=== PATIENT | female | born 1960 | race African-American/Black ===

== ENCOUNTER 2025-08-03 12:59 | Outpatient (REF) | payer MEDICARE, SELFPAY ==
--- NOTE | 2025-08-03 | EMG_ITS ---
Chief complaint:?R20.0 Anesthesia of skin Reason for referral: Burning and pain in hands Referred by:?Alpesh Rollins Procedure done: Bilateral hand numbness NCS/EMG Bilateral median and ulnar motor studies were performed. Bilateral median and ulnar mixed sensory studies, median and ulnar ortho sensory studies, and radial sensory studies were performed. EMG needle examination was performed. Findings: Bilateral median motor distal latencies were moderately prolonged. Left median mixed sensory study did not reveal any response. Right median mixed sensory distal latencies was prolonged with significantly slow conduction velocity. Left ulnar motor amplitudes were mildly diminished with mild slowing of conduction velocity. Impression: 1. 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 Moderate left ulnar neuropathy not of entrapment type Codin [id number] 2 extremities MTDD
--- OUTSIDE RECORDS SUMMARY | 2025-08-03 15:54 | XMS_ITS | Clinical Summary ---
Author Organization [address] [place] [address] Address [address] [place] [address] Phone Care Team Providers Care Financial Institution Treasurer Name Role Phone Madonna Stevens MD Primary Care Provider [phone] Allergies Active Allergy Reactions Criticality Noted Date Comments Apple 12/25/2020 Other 11/09/2015 Seasonal Allergies Runny nose , watery eye's Sneezing [place] (Prunus Persica) 05/07/2021 Nenana 12/25/2020 Nenana Pulp Nutritional Supplement-Fiber 025 Throat closes Medications acetaminophen (TYLENOL) 325 mg tablet Take 3 Tablets by mouth 3 times daily. Active albuterol HFA (PROAIR HFA ; PROVENTIL HFA ; VENTOLIN HFA) 90 mcg/actuation inhaler INHALE 2 PUFFS INTO THE LUNGS BY MOUTH EVERY 4 HOURS NEEDED FOR COUGH OR WHEEZING Active aspirin (ASPIR-81 ORAL) Take 81 mg by mouth daily. Active blood-glucose meter,continuous (Dexcom G7 Mixing Plant Operator) misc 1 Device by Does not apply route See Admin Instructions. Use daily with dexcom g 7 sensors Active blood-glucose sensor (DEXCOM G7 SENSOR MISC) 1 Device by Does not apply route See Admin Instructions. Change sensor every 10 days Active medical supply, miscellaneous (MISCELLANEOUS MEDICAL SUPPLY MISC) Inhale into the lungs. [employer]-pressur e 4-12 Active pen needle, diabetic (BD Ultra-Fine Short Pen Needle) 31 gauge x 5/16 needle USE TO INJECT FOUR TIMES DAILY 023 Active insulin syringe-needle U-100 0.5 mL 29 gauge x 1/2 syringe Use daily to inject Lantus insulin. 022 Active ipratropium-albu teroL (DUONEB) 0.5-2.5 mg/3 mL nebulizer solution USE 3 ML VIA NEBULIZER FOUR TIMES DAILY NEEDED FOR WHEEZING 024 Active fluticasone-umec lidinium-vilante rol (Trelegy Ellipta) 200-62.5-25 mcg inhaler INHALE 1 PUFF INTO THE LUNGS DAILY 60 each 11 Active simvastatin (ZOCOR) 20 mg tablet Take 1 tablet (20 mg total) by mouth at bedtime. at bedtime. 90 tablet 3 025 Active gabapentin (NEURONTIN) 300 mg capsule TAKE 1 CAPSULE BY MOUTH THREE TIMES DAILY 270 capsule 1 Active sacubitriL-valsa rtan (Entresto) 49-51 mg per tablet TAKE 1 TABLET BY MOUTH EVERY 12 HOURS 60 tablet 5 025 Active furosemide (LASIX) 40 mg tablet TAKE 1 TABLET BY MOUTH TWICE DAILY 200 tablet 2 025 Active Oxygen Therapy, Adult Inhale. Active insulin glargine (Lantus Solostar U-100 Insulin) 100 unit/mL (3 mL) injection pen INJECT 30 UNITS SUBCUTANEOUS AT BEDTIME 45 mL Active insulin lispro (HumaLOG KwikPen Insulin) 100 unit/mL injection pen INJECT 3-16UNITS PER SLIDING SCALE TID: 100-150=2U,150- 200=4U,201-250= 6U,251-300=8U,3 01-350=10U,351- 400=12U 15 mL 025 Active FeroSuL 325 mg (65 mg iron) tablet TAKE 1 TABLET BY MOUTH EVERY DAY 90 tablet 1 025 Active blood sugar diagnostic (Conduit LabsTouch Verio test strips) test strip CHECK BLOOD SUGAR 3 TIMES DAILY 300 strip 1 025 Active lancets (Conduit LabsTouch Delica Plus Lancet) 30 gauge USE TO TEST 3 TIMES DAILY 300 each 025 Active carvediloL (COREG) 12.5 mg tablet TAKE 1 TABLET(12.5 MG) BY MOUTH TWICE DAILY 180 tablet Active allopurinoL (ZYLOPRIM) 100 mg tablet TAKE 1/2 TABLET BY MOUTH DAILY 45 tablet Active hydrALAZINE (APRESOLINE) 10 mg tablet TAKE 1 TABLET(10 MG) BY MOUTH TWICE DAILY 180 tablet Active pantoprazole (PROTONIX) 40 mg EC tablet Take 1 tablet (40 mg total) by mouth 1 (one) time each day. Do not crush, chew, or split. 90 tablet 1 Active apixaban (Eliquis) 5 mg tablet Take 1 tablet (5 mg total) by mouth 2 (two) times a day. 180 tablet Active tirzepatide (Mounjaro) 5 mg/0.5 mL injectionIndicat ions:Type 2 diabetes mellitus with cataract (CMS/HCC V24, CMS/HCC V28) ADMINISTER 5 MG UNDER THE SKIN EVERY 7 DAYS 2 mL 11 Active allopurinoL (ZYLOPRIM) 100 mg tablet TAKE 1/2 TABLET BY MOUTH DAILY 45 tablet 1 025 2024 Discontinued apixaban (Eliquis) 5 mg tablet TAKE 1 TABLET BY MOUTH TWICE DAILY 180 tablet 1 025 2024 Discontinued(R eorder) pantoprazole (PROTONIX) 40 mg EC tablet TAKE 1 TABLET BY MOUTH DAILY 90 tablet 025 2024 Discontinued(R eorder) hydrALAZINE (APRESOLINE) 10 mg tablet Take 1 tablet (10 mg total) by mouth 2 (two) times a day. 180 tablet 025 2024 Discontinued Mounjaro 5 mg/0.5 mL injectionIndicat ions:Type 2 diabetes mellitus with cataract (CMS/HCC V24, CMS/HCC V28) ADMINISTER 5 MG UNDER THE SKIN EVERY 7 DAYS 2 mL 025 2024 Discontinued colchicine (COLCRYS) 0.6 mg tablet Take 1 tablet (0.6 mg total) by mouth 2 (two) times a day if needed for muscle/joint pain for up to 5 days. 10 tablet 025 2024 predniSONE (DELTASONE) 20 mg tablet Take 3 tablets (60 mg total) by mouth 1 (one) time each day for 5 days. 15 each 025 2024 Active Problems Problem Noted Date Diagnosed Date Atrial tachycardia [place] [place] 09/11/2023 Acute on chronic systolic he art failure ([facility] [place], [facility] V28) 09/10/2023 COPD with emphysema ([facility] [place], [facility]) 1 11/11/2022 Moderate persistent asthma without complication 02/05/2023 HFrEF (heart failure with re duced ejection fraction) ([facility] [place], [facility] V[facility]) 05/07/2021 Stress 01/25/2020 Hyperlipidemia 09/06/2019 Overview (08/02/2024): Last Assessment & Plan: Continue statin. Last lipid panel 05/17 total cholesterol 186, HDL 48, LDL 65. Triglycerides at this time was 365. Next time she has fasting labs would like this updated. Overlap syndrome ([facility] V24) 12/28/2018 Cataract 01/30/2017 Overview (08/02/2024): Bilateral Obstructive sleep apnea 10/07/2016 Overview (08/02/2024): mild overall with hypopneas DM (diabetes mellitus), type 2 with renal complications ([facility] [place], [facility] V28) 03/11/2016 Overview (08/02/2024): DM type 2, uncontrolled, with renal complications Normocytic anemia 12/27/2015 CKD (chronic kidney disease) stage 3, GFR 30-59 ml/min ([facility] [place], [facility] V28) 11/09/2015 Diabetic neuropathy ([facility] [place], [facility] V28) 0 11/09/2015 Cardiomyopathy ([facility] [place] V28) 2014 Overview (08/02/2024): 5/18/15 cardiac cath normal coronaries LVG 30% Last Assessment & Plan: Heart rate is elevated today around 120. Tachycardia is not new for her however this is slightly higher than her normal. We will increase her metoprolol to 200 mg twice daily. She will obtain blood work within the next 1 to 2 days and plan to reinitiate Entresto. Aldactone has also been on hold but we will reinitiate these medications slowly with a close eye on her kidney function and potassium level. She tells me prior to the hospital her legs were pretty swollen and today they look close to her baseline. She has no heart failure symptoms. She does have baseline dyspnea on exertion but does not believe this is worsened. Reviewed signs and symptoms of heart failure and educated regarding monitoring weight, diet, and fluid intake. If there is a weight gain of 3 pounds in one day or 5 pounds in a week please call our office or seek medical attention if necessary. Asthma 12/12/2014 Morbid obesity with BMI of 5 0.0-59.9, adult ([facility] V24, [facility] V28) 01/03/2014 Hypoventilation associated w ith obesity ([facility] V24, [facility] V28) 08/08/2013 CVA (cerebral vascular accident) ([facility], [facility] V[facility]) 11/21/2011 Overview (08/02/2024): Mri 11/0960-guvaudgd-fyr in cerebellum adn left vertebral artery occulusion.neuro and neurosurg were consulted. Head and neck cta-vertebral artery occulusion which was reveiwed [place] neurosug Who reported no intervention. 11/09-carotid artery looked onk on cta Echo ef 45-50% IMO update Systolic congestive heart fa ilure ([facility] V24, [facility] V28) 11/21/2011 Overview (08/02/2024): 08/11- inf basal reduced wall motion.ef 45%.diastolic dysfunction seen by dr sherman technically significantly limited M-mode, 2D and color flow Doppler echocardiogram reveals grossly low normal LVEF. Precise LVEF and wall motion abnormalities cannot be evaluated due to poor image quality. Subtle valvular abnormalities cannot be excluded either. 2/12-echo ef 45-50% Preglaucoma 03/02/2010 Overview (08/02/2024): Per Dr. Farnsworth 07/25/2008 Type 2 diabetes mellitus wit h cataract ([facility] V24, [facility] V28) 07/21/2008 Eczema 06/21/2008 Overview (08/02/2024): Seen by mack.also has tenia versicolor,lichen planus 03/01/10 - cpx Saw Dr. Bush For tinea ; Cream for eczema from here HTN (hypertension), benign 06/08/2008 Overview (08/02/2024): Last Assessment & Plan: Controlled mostly, is off Entresto and Aldactone plan to reinitiate these slowly which will help her BP also Osteoarthritis 06/08/2008 Overview (08/02/2024): 08/07- TKR rt-dr riojas 03/08- left tkr Porfirio-Dr canchola rheum.has also been seeing [place] [facility].has to get knee replacements Was on oxycodone and tramadol 08/31 xray knees- sevre osteoarthritic changes withing porfirio knees cpx 03/01/10 - scheduled for knee replacement 2009 Type II diabetes mellitus wi th neurological manifestations ([facility] V24, [facility] V28) 06/08/2008 Overview (08/02/2024): 10/10-4 metformin a day even xr giving loose stools Dr Tang previous pcp.was discharged due to noncompliance as per pt Hx of numbness and tingling in feet Has seen endocrine for hirsuitism Encounters Date Type Department Care Team Description 07/26/2025 3:03 PM EDT - 07/26/2025 3:54 PM EDT Emergency [facility] Emergency [address] [place] [address] Bogdan Maldonado MD Left arm pain (Primary Dx); Lead-induced acute gout of left hand, initial encounter Discharge Disposition: Home or Self Care 07/26/2025 Telephone Adult Medicine [address] [phone] Madonna Stevens MD 07/21/2025 Telephone Adult Medicine [address] [phone] Madonna Stevens MD 07/21/2025 Telephone Adult Medicine [address] [phone] Madonna Stevens MD 07/14/2025 Telephone Adult Medicine [address] [phone] Madonna Stevens MD 07/13/2025 Telephone Adult Medicine [address] [phone] [place] 07/13/2025 Telephone Adult Medicine [address] [phone] [place] 06/30/2025 Telephone Adult Medicine [address] [phone] Madonna Stevens MD 06/27/2025 Telephone Adult Medicine [address] [phone] Madonna Stevens MD 06/26/2025 Telephone Pulmonology [facility] [address] [phone] Suzy Cummings [place] 06/26/2025 Telephone Pulmonology [facility] 299 [facility] [address] [place] [phone] Trinity Sierra [place] 06/20/2025 4:25 PM EDT Office Visit Pulmonology [facility] 175 [facility] [address] [place] [address] Homa Cotto NP Pulmonary emphysema, unspecified emphysema type (CMS/HCC V24, CMS/HCC V28) (Primary Dx); HFrEF (heart failure with reduced ejection fraction) ([facility] V[facility], [facility] V[facility]); Severe asthma without complication, unspecified whether persistent; Lung mass; Obstructive sleep apnea; Class 3 obesity with alveolar hypoventilation, serious comorbidity, and body mass index (BMI) of 50.0 to 59.9 in adult ([facility] V24, [facility]) 06/19/2025 4:08 PM EDT - 06/19/2025 11:59 PM EDT Hospital [facility] CT Scan [address] [place] [id number] Lung mass Discharge Disposition: Home or Self Care 06/16/2025 Telephone Adult Medicine [address] [phone] Brittany Bowling [place] 06/15/2025 Telephone Pulmonology [facility] [address] [phone] Trinity Sierra [place] 06/13/2025 4:30 PM EDT Consult Pulmonology - [place] [address] [phone] Lissette De La Cruz MD Lung mass (Primary Dx) 06/13/2025 Telephone Adult Medicine [address] [phone] Sally Mcclure [place] 06/12/2025 Telephone Adult Medicine [address] [phone] Madonna Stevens MD 06/05/2025 Telephone Adult Medicine [address] [phone] Sally Mcclure [place] 06/01/2025 Telephone Adult Medicine [address] [phone] Madonna Stevens MD 05/31/2025 Telephone Pulmonology [facility] [address] [phone] Trinity Hoffman [place] 05/25/2025 Telephone Adult [address] [phone] Ernesto BazanisFRIDA 05/24/[address] [phone] Madonna Stevens MD 05/23/[address] [phone] Madonna Stevens MD 05/23/[address] [phone] Madonna Stevens MD 05/22/2025 2:00 PM EDT Office Visit [address] [phone] Em Mcrae PA Type 2 diabetes mellitus with cataract ([facility] V24, [facility] V[facility]) (Primary Dx); HTN (hypertension), benign; Morbid obesity with BMI of 50.0-59.9, adult ([facility] V24, [facility] V28); Stage 3b chronic kidney disease ([facility] V24, [facility] V[facility]) 05/11/2025 10:30 AM EDT Office Visit [address] [phone] Madonna Stevens MD Hospital discharge follow-up (Primary Dx); Lung mass; Stage 3b chronic kidney disease (CMS/HCC V24, CMS/HCC V28); Class 3 obesity with alveolar hypoventilation, serious comorbidity, and body mass index (BMI) of 50.0 to 59.9 in adult ([facility] V[facility], [facility] V[facility]); Pulmonary emphysema, unspecified emphysema type ([facility], [facility] V[facility]); Carpal tunnel syndrome of left wrist from Last 3 Months Immunizations Immunization Administration Dates Next Due Influenza Quadravalent, MDCK , 0.5ml, preservative free (Flucelvax) 6mo and older 07/21/2022,06/26/2020 Influenza trivalent, MDCK, 0 .5mL, preservative free (Flucelvax) 6mo and older 11/16/2024 Influenza trivalent, with pr eservative (Fluzone; Afluria) 6mo and older 10/03/2014 Pneumococcal polysaccharide 23 valent (Pneumovax 23) 2yo and older 10/03/2014 Tdap Tetanus diptheria acell ular pertussis (Boostrix; Adacel) 7yo and older 09/12/2009 Surgical History Surgery Date Site/Laterality Comments SECTION PROCEDURE: OR DELIVERY ONLY OTHER SURGICAL HISTORY 09/28/2007 PROCEDURE: OR TOTAL ABDOMINAL HYSTERECT W/WO RMVL TUBE OVARY COLONOSCOPY 07/08/13; [facility] PROCEDURE: HISTORICAL COLONOSCOPY; COMMENT: normal; repeat in ten yrs TOTAL KNEE ARTHROPLASTY PROCEDURE: OR ARTHRP KNE CONDYLE&PLATU MEDIAL&LAT COMPARTMENTS Medical History Medical History Date Comments Type II or unspecified type diabetes mellitus with unspecified complication, not stated as uncontrolled DX:Type II or unspecified ty pe diabetes mellitus with unspecified complication, not stated as uncontrolled; COMMENT: no am read Heart disease, unspecified DX:He art disease, unspecified Unspecified essential hypertension DX:Unspecified essential hypertension Preglaucoma 03/02/2010 DX:Preglaucoma Diabetic neuropathy ([facility] V[facility], [facility]) 11/09/2015 DX:Diabetic neuropathy ([facility]) CKD (chronic kidney disease) stage 3, GFR 30-59 ml/min ([facility] V24, [facility] V[facility]) 11/09/2015 DX:CKD (chronic kidney disea se) stage 3, GFR 30-59 ml/min ([facility]) DM type 2, uncontrolled, wit h renal complications 03/11/2016 DX:DM type 2, uncontrolled, with renal complications Cataract 01/30/2017 DX:Cataract; COM MENT: Bilateral Type 2 diabetes mellitus wit h cataract ([facility] V24, [facility] V[facility]) 07/21/2008 DX:Type 2 diabetes mellitus with cataract ([facility]) Elevated heart rate with ronni vated blood pressure and diagnosis of hypertension DX:Elevated heart rate with elevated blood pressure and diagnosis of hypertension Renal disease DX:Renal disease COPD (chronic obstructive pu lmonary disease) ([facility] V[facility], [facility] V[facility]) DX:COPD (chronic o bstructive pulmonary disease) (HCC) Asthma DX:Asthma Arthritis DX:Arthritis Sleep apnea DX:Sleep apnea Therapeutic drug monitoring DX:T herapeutic drug monitoring Vertebral osteomyelitis, acu te ([facility] V24, [facility] V28) DX:Vertebral osteomyelitis, acute (HCC) Family History Medical History Relation Name Comments Diabetes Brother Hypertension Brother Other: Other Brother dm/ htn Cataracts Father Diabetes Father Hypertension Father Other: Hyperlipidemia Father Other: Other Father dm Prostate cancer Father Cataracts Mother Hypertension Mother Other: Hyperlipidemia Mother Diabetes Sister 1 Breast cancer Neg Hx Relation Name Status Comments Brother Alive 2, Father renal failure Mother ovarain cancer Sister 1 Sister 2 Alive 1,healhy Social History Tobacco Use Types Packs/Day Years Used Date Smoking Tobacco: Never Smokeless Tobacco: Never Tobacco Cessation:Counseling Given: Not Answered Alcohol Use Standard Drinks/Week Comments Not Currently 0 (1 standard drink = 0.6 oz pur e alcohol) Comments No Sex and Gender Information Value Date Recorded Sex Assigned at Female 11/03/2022 5:34 PM EST Legal Sex Female 5:45 PM EST Gender Identity Female 11/03/2022 5:34 PM EST Sexual Orientation Not on file Obstetrics History Last Filed Vital Signs Vital Sign Reading Time Taken Comments Blood Pressure 141/121 07/26/2025 2:49 PM EDT Pulse 88 07/26/2025 2:49 PM EDT Temperature 36.6 C (97.9 F) 06/20/2025 4:22 PM EDT Respiratory Rate 18 07/26/2025 2:49 PM EDT Oxygen Saturation 93% 07/26/2025 2:49 PM EDT Inhaled Oxygen Concentration - - Weight 145 kg (320 lb) 06/13/2025 4:45 PM EDT Height 157.5 cm (5' 2 ) 06/13/2025 4:45 PM EDT Body Mass Index 58.53 06/13/2025 4:45 PM EDT Plan of Treatment Upcoming Encounters Date Type Department Care Team (Late st Contact Info) Description 08/09/2025 3:15 PM EST Ancillary Procedure Pulmonology - [address] [place] [address] 08/15/2025 2:40 PM EST Office Visit [facility] [address] 300 [facility] [address] [place] [phone] Clarisa Martins NP [address] [place] [address] Dr Maldonado [address] [place] [address] 08/21/2025 4:00 PM EST Office Visit Pulmonology - [place] [address] [place] [phone] Homa Cotto NP [address] [place] [address] 08/31/2025 3:45 PM EST Office Visit Endocrinology [address] [phone] Em Mcrae PA [address] [place] [address] Health Maintenance Due Date Last Done Comments Colorectal Cancer Screening: Colonoscopy 1960 Diabetes: Annual Foot Exam 02/14/1970 Diabetes: Annual Retina Eye Exam 02/14/1970 Zoster Vaccines (1 of 2) 02/14/1979 RSV Immunization Adult Patients (1 - Risk 50-74 years 1-dose series) 02/14/2010 Pneumococcal Vaccine: 50+ Years (2 of 2 - PCV) 10/03/2015 10/03/2014 DTaP,Tdap,and Td Vaccines (2 - Td or Tdap) 09/12/2019 09/12/2009 COVID-19 Vaccine (3 - Moderna risk series) 05/31/2021 05/03/2021, 04/05/2021 Medicare Annual Wellness Visit 09/06/2022 Osteoporosis Screening (Bone Density Screening) 09/06/2022 Social Influencers of Health Screening 09/06/2022 Diabetes: Annual Urine Albumin-Creatinine Ratio (uACR) 09/10/2022 09/10/2021 Depression Screening 09/28/2024 Breast Cancer Screening 01/28/2025 01/28/2023 Falls Risk Assessment 02/14/2025 Influenza Vaccine (#1) 2025 , 07/21/2022, 06/26/2020, Additional history exists Diabetes: Blood Sugar Control Test (HGBA1C) 09/21/2025 03/22/2025, 09/09/2023 Diabetes: Annual GFR (Glomerular Filtration Rate) 03/22/2026 03/22/2025, 12/09/2023 Hypertension/CHF/CAD Annual BMP Blood Test 03/22/2026 03/22/2025, 12/09/2023 Cholesterol Screening (Lipid Panel) 03/22/2030 03/22/2025, 04/02/2023 Hepatitis C Screening Completed 05/12/2013 HIB Vaccines Aged Out No longer eligi ble based on patient's age to complete this topic HPV Vaccines Aged Out No longer eligi ble based on patient's age to complete this topic Hepatitis A Vaccines Aged Out No long er eligible based on patient's age to complete this topic Hepatitis B Vaccines Aged Out No long er eligible based on patient's age to complete this topic IPV Vaccines Aged Out No longer eligi ble based on patient's age to complete this topic MMR Vaccines Aged Out No longer eligi ble based on patient's age to complete this topic Meningococcal ACWY Vaccine Aged Out N o longer eligible based on patient's age to complete this topic Meningococcal B Vaccine Aged Out No l onger eligible based on patient's age to complete this topic RSV Immunization Patients Under 20 months Aged Out No longer eligible based on patient's age to complete this topic Varicella Vaccines Aged Out No longer eligible based on patient's age to complete this topic Procedures Procedure Name Priority Date/Time Associated Diagnosis Comments VAS US DUPLEX UPPER EXT VENOUS LEFT STAT 07/26/2025 3:30 PM EDT Left arm pain CT CHEST WO CONTRAST STAT 06/19/2025 4:32 PM EDT Lung mass POC GLUCOSE Routine 05/22/2025 3:07 PM EDT Type 2 diabetes mellitus with cataract (CMS/HCC V24, CMS/HCC V28) HTN (hypertension), benign Morbid obesity with BMI of 50.0-59.9, adult (CMS/HCC V24, CMS/HCC V28) Stage 3b chronic kidney disease (CMS/HCC V24, CMS/HCC V28) COMPREHENSIVE METABOLIC PANEL Routine 03/22/2025 3:35 PM EDT Stage 3b chronic kidney disease (CMS/HCC V24, CMS/HCC V28) HEMOGLOBIN A1C Routine 03/22/2025 3:35 PM EDT Diabetic polyneuropathy associated with type 2 diabetes mellitus (CMS/HCC V24, CMS/HCC V28) LIPID PANEL WITH REFLEX TO DIRECT LDL Routine 03/22/2025 3:35 PM EDT Mixed hyperlipidemia SCREENING MAMMOGRAPHY BI 2-VIEW BREAST INC CAD Routine 01/28/2023 11:27 AM EDT Encounter for screening mammogram for malignant neoplasm of breast URINE ALBUMIN CREATININE RATIO Routine 09/10/2021 HEPATITIS C SCREENING Routine 05/12/2013 from Last 3 Months or Most Recently Relevant to Health Maintenance Results * Vascular US duplex upper extremity venous left (07/26/2025 3:30 PM EDT) Anatomical Region Laterality Modality Vascular, Abdomen Ultrasound 07/26/2025 3:35 PM EDT Impressions 07/26/2025 3:35 PM EDT No evidence for DVT within the left upper extremity. -------- FINAL REPORT -------- Dictated By: Aldair Butler Dictated Date: 07/26/2025 15:35 ET Assigned Physician: Aldair Butler Reviewed and Electronically Signed By: Aldair Butler Signed Date: 07/26/2025 15:35 ET Workstation ID: [id number] Transcribed By: Self Edit Transcribed Date: 07/26/2025 15:35 ET Narrative 07/26/2025 3:35 PM EDT STUDY: VAS US DUPLEX UPPER EXT VENOUS LEFT COMPARISON: None INDICATION: pain in extremities EPISODE: Not applicable TECHNIQUE: Multiple sonographic images of the left upper extremity were obtained with and without color flow interrogation and spectral duplex waveform analysis. FINDINGS: On the left, the visualized internal jugular vein demonstrates color flow, normal phasic waveforms, and compressibility. The visualized (limited) subclavian vein demonstrates color flow and phasic waveforms. Color flow is demonstrated within the visualized axillary vein. The brachial veins demonstrates color flow, phasic waveforms and compressibility. The visualized basilic and cephalic veins demonstrate color flow and normal compressibility. Procedure Note Aldair Butler MD - 07/26/2025 STUDY: VAS US DUPLEX UPPER EXT VENOUS LEFT COMPARISON: None INDICATION: pain in extremities EPISODE: Not applicable TECHNIQUE: Multiple sonographic images of the left upper extremity wereobtained with and without color flow interrogation and spectral duplexwaveform analysis. FINDINGS: On the left, the visualized internal jugular vein demonstrates color flow,normal phasic waveforms, and compressibility. The visualized (limited)subclavian vein demonstrates color flow and phasic waveforms. Color flowis demonstrated within the visualized axillary vein. The brachial veinsdemonstrates color flow, phasic waveforms and compressibility. Thevisualized basilic and cephalic veins demonstrate color flow and normalcompressibility. IMPRESSION: No evidence for DVT within the left upper extremity. -------- FINAL REPORT -------- Dictated By: Aldair Butler Dictated Date: 07/26/2025 15:35 ET Assigned Physician: Aldair Butler Reviewed and Electronically Signed By: Aldair Butler Signed Date: 07/26/2025 15:35 ET Workstation ID: [id number] Transcribed By: Self Edit Transcribed Date: 07/26/2025 15:35 ET Bogdan Maldonado MD CV VASCULAR PROCEDURES Final Res ult * CT Chest wo Contrast (06/19/2025 4:32 PM EDT) Anatomical Region Laterality Modality Body Computed Tomogra phy 06/19/2025 5:21 PM EDT Impressions 06/19/2025 5:24 PM EDT Resolved left upper lobe consolidation. No suspicious pulmonary nodule. -------- FINAL REPORT -------- Dictated By: Aldair Butler Dictated Date: 06/19/2025 17:21 ET Assigned Physician: Aldair Butler Reviewed and Electronically Signed By: Aldair Butler Signed Date: 06/19/2025 17:24 ET Workstation ID: [id number] Transcribed By: Self Edit Transcribed Date: 06/19/2025 17:21 ET Narrative 06/19/2025 5:24 PM EDT PROCEDURE: CT CHEST WITHOUT CONTRAST INDICATION: Lung nodule, > 8mm TECHNIQUE: Chest CT without contrast. Multi planar reformats were created and interpreted. The examination was performed utilizing dose reduction techniques.Total DLP 1293 mGy/cm COMPARISON: 04/06/2025 FINDINGS: LUNGS/PLEURA: Resolved left upper lobe consolidation. No suspicious pulmonary nodule. Tiny granulomas throughout. Central airways are clear. MEDIASTINUM: Mild coronary artery calcifications. No pericardial effusion. No mediastinal mass. CHEST WALL: Reactive axillary nodes. No suspicious soft tissue masses evident. UPPER ABDOMEN:Hyperdense left renal cyst. Only partially visualized left kidney. BONES: No acute fracture. Scattered degenerative changes seen throughout the bones. Procedure Note Aldair Butler MD - 06/19/2025 PROCEDURE: CT CHEST WITHOUT CONTRAST INDICATION: Lung nodule, > 8mm TECHNIQUE: Chest CT without contrast. Multi planar reformats were createdand interpreted. The examination was performed utilizing dose reductiontechniques.Total DLP 1293 mGy/cm COMPARISON: 04/06/2025 FINDINGS: LUNGS/PLEURA: Resolved left upper lobe consolidation. No suspiciouspulmonary nodule. Tiny granulomas throughout. Central airways areclear. MEDIASTINUM: Mild coronary artery calcifications. No pericardialeffusion. No mediastinal mass. CHEST WALL: Reactive axillary nodes. No suspicious soft tissue massesevident. UPPER ABDOMEN:Hyperdense left renal cyst. Only partially visualized leftkidney. BONES: No acute fracture. Scattered degenerative changes seen throughoutthe bones. IMPRESSION: Resolved left upper lobe consolidation. No suspicious pulmonary nodule. -------- FINAL REPORT -------- Dictated By: Aldair Butler Dictated Date: 06/19/2025 17:21 ET Assigned Physician: Aldair Butler Reviewed and Electronically Signed By: Aldair Butler Signed Date: 06/19/2025 17:24 ET Workstation ID: [id number] Transcribed By: Self Edit Transcribed Date: 06/19/2025 17:21 ET us Lissette De La Cruz MD IMG CT PROCEDURES Final Re sult * POC glucose manually resulted (05/22/2025 3:07 PM EDT) Glucose POC 123 mg/dL Blood Capillary blood specimen / Unknown 05/22/2025 3:07 PM EDT us Em ALONSO POINT OF CARE TEST ENTER/ED IT ORDERABLES Final Result * (ABNORMAL) Lipid panel with reflex to direct LDL (03/22/2025 3:35 PM EDT) Cholesterol 185 0 - 200 mg/dL LAB CHEMISTRY METHOD 03/22/2025 6:59 PM EDT [facility] Triglycerides 328(H) 0 - 150 mg/dL LAB CHEMISTRY METHOD 03/22/2025 6:59 PM EDT [facility] HDL 45 >=40 mg/dL LAB CHEMISTRY METHOD 03/22/2025 6:59 PM EDT [facility] LDL Calculated 74 0 - 100 mg/dL LAB CHEMISTRY METHOD 03/22/2025 6:59 PM EDT [facility] VLDL Cholesterol Pierre 65.6 mg/dL LAB CHEMISTRY METHOD 03/22/2025 6:59 PM EDT [facility] Non HDL Chol. (LDL+VLDL) 140 <145 mg/dL LAB CHEMISTRY METHOD 03/22/2025 6:59 PM EDT [facility] Chol/HDL Ratio 4.1 0.0 - 4.4 LAB CHEMISTRY METHOD 03/22/2025 6:59 PM EDT [facility] Blood Venous blood specimen / Unknown Venipuncture / Unknown 03/22/2025 3:35 PM EDT 03/22/2025 3:35 PM EDT us Madonna Stevens MD LAB BLOOD ORDERABLES Final Resul t [facility] [address] [place] [address], [place] [phone] * (ABNORMAL) Hemoglobin A1c (03/22/2025 3:35 PM EDT) Hemoglobin A1C 7.7(H) <6.5 % LAB CHEMISTRY METHOD 03/22/2025 9:41 PM EDT [facility] Mean Bld Glu Estim. 174 mg/dL LAB CHEMISTRY METHOD 03/22/2025 9:41 PM T [facility] Blood Venous blood specimen / Unknown Venipuncture / Unknown 03/22/2025 3:35 PM EDT 03/22/2025 3:35 PM EDT us Madonna Stevens MD LAB BLOOD ORDERABLES Final Resul t [facility] [address] [place] [address], [place] [phone] * (ABNORMAL) Comprehensive metabolic panel (03/22/2025 3:35 PM EDT) [facility] Sodium 144 133 - 145 mmol/L LAB CHEMISTRY METHOD 03/22/2025 6:59 PM [facility] Potassium 4.0 3.5 - 5.5 mmol/L LAB CHEMISTRY METHOD 03/22/2025 6:59 PM [facility] Chloride 107 96 - 110 mmol/L LAB CHEMISTRY METHOD 03/22/2025 6:59 PM [facility] CO2 28 21 - 32 mmol/L LAB CHEMISTRY METHOD 03/22/2025 6:59 PM [facility] Anion Gap 9 3 - 11 LAB CHEMISTRY METHOD 03/22/2025 6:59 PM [facility] Glucose 114(H) 70 - 100 mg/dL LAB CHEMISTRY METHOD 03/22/2025 6:59 PM [facility] BUN 37(H) 5 - 25 mg/dL LAB CHEMISTRY METHOD 03/22/2025 6:59 PM [facility] Creatinine 1.65(H) 0.50 - 1.10 mg/dL LAB CHEMISTRY METHOD 03/22/2025 6:59 PM EDT [facility] eGFR 34(L) >=60 mL/min/1. 73m2 LAB CHEMISTRY METHOD 03/22/2025 6:59 PM T [facility] Comment:Calculation based on the Chronic Kidney Disease Epidemiology Collaboration (CKD-EPI) equation refit without adjustment for race. BUN/Creatinine Ratio 22.4 LAB CHEMISTRY METHOD 03/22/2025 6:59 PM EDT [facility] Calcium 8.7 8.5 - 10.5 mg/dL LAB CHEMISTRY METHOD 03/22/2025 6:59 PM [facility] AST (SGOT) 9(L) 10 - 42 unit/L LAB CHEMISTRY METHOD 03/22/2025 6:59 PM [facility] ALT (SGPT) 16 10 - 60 unit/L LAB CHEMISTRY METHOD 03/22/2025 6:59 PM [facility] Alkaline Phosphatase 103 42 - 121 unit/L LAB CHEMISTRY METHOD 03/22/2025 6:59 PM [facility] Total Protein 6.6 6.0 - 8.0 g/dL LAB CHEMISTRY METHOD 03/22/2025 6:59 PM [facility] Albumin 3.4 3.2 - 5.0 g/dL LAB CHEMISTRY METHOD 03/22/2025 6:59 PM [facility] Total Bilirubin 0.4 0.0 - 1.4 mg/dL LAB CHEMISTRY METHOD 03/22/2025 6:59 PM [facility] Blood Venous blood specimen / Unknown Venipuncture / Unknown 03/22/2025 3:35 PM EDT 03/22/2025 3:35 PM EDT us Madonna Stevens MD LAB BLOOD ORDERABLES Final Resul t [facility] [address] [place], [place] [address] [phone] * SCREENING MAMMOGRAPHY BI 2-VIEW BREAST INC CAD (01/28/2023 11:27 AM EDT) Anatomical Region Laterality Modality Radiographic Rosalina ging 12/25/2022 10:4 8 AM EDT Narrative 01/30/2023 9:42 AM EDT This is a summary report. The complete report is available in the patient's medical record. If you cannot access the medical record, please contact the sending organization for a detailed fax or copy. Exam: Screening mammogram Findings: Digital bilateral full-field screening mammography is performed with tomosynthesis and interpreted with the aid of computer-aided detection. Comparison is made with 03/28/2014 and 03/17/2013. Positioning limited due to patient body habitus and patient inability to stand for a long duration. Images obtained are the best possible. Breast parenchyma is composed of scattered fibroglandular densities. No new suspicious mass, architectural distortion, or suspicious calcifications. Impression: No mammographic evidence of malignancy. BI-RADS 1 - negative Procedure Note Ailin Freeman MD - 11/03/2023 This is a summary report. The complete report is available in thepatient's medical record. If you cannot access the medical record, pleasecontact the sending organization for a detailed fax or copy. Exam: Screening mammogram Findings: Digital bilateral full-field screening mammography is performedwith tomosynthesis and interpreted with the aid of computer-aideddetection. Comparison is made with 03/28/2014 and 03/17/2013. Positioninglimited due to patient body habitus and patient inability to stand for along duration. Images obtained are the best possible. Breast parenchyma is composed of scattered fibroglandular densities. Nonew suspicious mass, architectural distortion, or suspiciouscalcifications. Impression: No mammographic evidence of malignancy. BI-RADS 1 - negative Madonna Stevens MD IMG XR PROCEDURES Final Result * Urine Albumin Creatinine Ratio (09/10/2021) Urine Albumin Creatinine Ratio Abstracted Historical Provider HEALTH MAINTENANCE Final Result * Hepatitis C Screening (05/12/2013) Pathologist [facility] Hepatitis C Screening Abstracted us Historical Provider HEALTH MAINTENANCE Final Result from Last 3 Months or Most Recently Relevant to Health Maintenance Insurance [place] Member Subscriber Plan / Payer (Ef fective 2024-Present) Name:ZENON SHERIN Relation to Subscriber:Self Name:Sherin Encarnacion Payer ID:[id number] Group ID:Not on file Type:Not on file Address: [facility] [employer] [facility] ATTN:CLAIMS [address] [place] [address] [employer] MEDICARE Care Teams Financial Institution Treasurer Relationship Specialty Start Date End Date Madonna Stevens MD [address] [place] [phone] PCP - General Internal Medicine 07/01/22
--- OUTSIDE RECORDS SUMMARY | 2025-08-03 15:55 | XMS_ITS | Encounter Summary ---
Author Organization [facility] [place] [address] Care Team Providers Care Furrier Shop Supervisor Name Role Phone Madonna Stevens MD Primary Care Provider [phone] Reason for Visit * Reason Onset Date Comments home health Cert 07/13/2025 Encounter Details Date Type Department Care Team ([facility] st Contact Info) Description 07/13/2025 Telephone Adult Medicine [address] [phone] Sally Mcclure MA Social History Tobacco Use Types Packs/Day Years Used Date Smoking Tobacco: Never Smokeless Tobacco: Never Alcohol Use Standard Drinks/Week Comments Not Currently 0 (1 standard drink = 0.6 oz pur e alcohol) Comments No Sex and Gender Information Value Date Recorded Sex Assigned at Female 11/03/2022 5:34 PM EST Legal Sex Female 5:45 PM EST Gender Identity Female 11/03/2022 5:34 PM EST Sexual Orientation Not on file documented as of this encounter Functional Status * Calculated C-SSRS Risk Score (Lifetime/Recent) Answer Date of Assessment Author No Risk Indicated 07/26/2025 2:39 PM Veronique Elliott RN * Clarissa Suicide Severity Rating Scale (Screener/Recent Self-Report) Question Answer Date of Assessment Author 1. Wish to be (Past 1 Month) No 025 2:39 PM Veronique Elliott RN documented as of this encounter Progress Notes * Sally Mcclure MA - 08/01/2025 10:31 AM EST Refaxed orders today * Sally Mcclure MA - 07/13/2025 3:37 PM EDT Home Health Cert 06/11/25-08/09/25 [facility] Signed, scanned and faxed via Right fax. [phone] documented in this encounter Plan of Treatment Upcoming Encounters Date Type Department Care Team (Late st Contact Info) Description 08/09/2025 3:15 PM EST Ancillary Procedure Pulmonology - [place] 175 [facility] [address] [place] [phone] 08/15/2025 2:40 PM EST Office Visit [facility] - [facility] 102 300 [facility] 102 [place] [phone] Clarisa Martins NP [address] [place] [address] Dr Maldonado [address] [place] [phone] 08/21/2025 4:00 PM EST Office Visit Pulmonology - [place] 175 [facility] [address] [place] [phone] Homa Cotto, KYLEE [address] [place] [phone] 08/31/2025 3:45 PM EST Office Visit Endocrinology - [address] [phone] Em Mcrae PA [address] [place] [address] documented as of this encounter Visit Diagnoses Not on filedocumented in this encounter Care Teams Furrier Shop Supervisor Relationship Specialty Start Date End Date Madonna Stevens MD [address] [place] [address] PCP - General Internal Medicine 07/01/22 documented as of this encounter
--- OUTSIDE RECORDS SUMMARY | 2025-08-03 15:55 | XMS_ITS | Encounter Summary ---
Author Organization [facility] [place] [address] Care Team Providers Care Welfare Officer Name Role Phone Madonna Stevens MD Primary Care Provider [phone] Reason for Visit * Reason Onset Date Comments Gout 07/26/2025 Encounter Details Date Type Department Care Team (Late st Contact Info) Description 07/26/2025 Telephone Adult Medicine [address] [phone] Madonna Stevens MD [address] [place] [address] Social History Tobacco Use Types Packs/Day Years [...] 07/26/2025 2:39 PM Veronique Elliott RN * Newell Suicide Severity Rating Scale (Screener/Recent Self-Report) Question Answer Date of Assessment Author 1. Wish to be (Past 1 Month) No 025 2:39 PM Veronique Elliott RN documented as of this encounter Progress Notes * Di Guerrero RN - 07/26/2025 12:53 PM EDT Spoke to pt. And she states I hope they don't send me to the ER she states it is very inflamed she is unable to close her fist. I advised pt. She should be evaluated in the ER for proper diagnosis and treated appropriately , with her diabetes this could be an infection. Pt. Agrees and will followup after evaluation * Abbey Camargo - 07/26/2025 12:41 PM EDT The patient is calling back and has transportation today. Please call her back. * Di Guerrero RN - 07/26/2025 11:10 AM EDT Spoke with pt. She states its gout I have had it more times then I can count She sts her left hand is swollen, slightly red and warm it's tender to touch . No injuries, no wounds, no cuts, no fever or chills, no streaking . No weakness, lightheadedness, cp or sob blood sugar this a.m. 112. She states this feels like her gout, she has had it in the hand before along with elbow . Offered multiple apt. Times for today. She states it is difficulty to get a ride. She will call and attempt to get a ride and call the office back . I reiterated the importance of being checked today . Pt. Agrees * Olivia Douglas - 07/26/2025 10:42 AM EDT Patient call requires triage: Symptoms patient is presenting: c/o left hand gout flare up How long has patient had these symptoms?: 2 days For ALL patients calling to schedule any appointment (routine, sick visit, follow up, consult, etc.) in the outpatient setting please ask the following questions: Do you have fever of higher than 101, sore throat with difficulty swallowing or severe shortness ofbreath? no If YES to any of these above symptoms, send a message to triage and do not book. Red dot. If no, an audio or video visit should be booked. Have you had close contact with someone with Coronavirus in the last 14 days? no Have you traveled abroad? no Have you traveled recently to another state outside of [place], [place], [place], [place], [place], [place], [place]? no o If yes, did you quarantine for 14 days or have a negative covid test? no If yes to any of the above, patient is not to be scheduled in office until after 14 day quarantine or negative covid test. If pain or injury related was it due to an accident at work or from a motor vehicle accident? If yes, date of accident/Injury: No If yes, gather 3rd democrat insurance information Third Democrat Information: not applicable PCP: Madonna Stevens MD Payor: UNITED [employer]ALTH[employer] MEDICARE / Plan: AARP MEDICARE COMPLETE / Product Type: *No Product type* / documented in this encounter Plan of Treatment Upcoming Encounters Date Type Department Care Team (Late st Contact Info) Description 08/09/2025 3:15 PM EST Ancillary Procedure Pulmonology - [address] [phone] 08/15/2025 2:40 PM EST Office Visit [facility] - [facility] 102 [address] [facility] [address] [place] [phone] Clarisa Martins NP [address] [place] [address] [place] [address] 08/21/2025 4:00 PM EST Office Visit Pulmonology - [place] 175 [facility] 200 [place] [phone] Homa Cotto NP [address] [place] [phone] 08/31/2025 3:45 PM EST Office Visit Endocrinology [address] [place] [phone] Em Mcrae PA [address] [place] [address] documented as of this encounter Visit Diagnoses Not on filedocumented in this encounter Care Teams Welfare Officer Relationship Specialty Start Date End Date Madonna Stevens MD [address], [place] PCP - General Internal Medicine 07/01/22 documented as of this encounter
--- OUTSIDE RECORDS SUMMARY | 2025-08-03 15:55 | XMS_ITS | Encounter Summary ---
Author Organization [facility] [place] [address] Care Team Providers Care Banquet Stewardess Name Role Phone Madonna Stevens MD Primary Care Provider [phone] Reason for Visit * Reason Onset Date Comments orders 07/13/2025 Encounter Details Date Type Department Care Team ([facility] Contact Info) Description 07/13/2025 Telephone Adult Medicine [address] [phone] Sally Mcclure MA Social History Tobacco Use [...] 07/26/2025 2:39 PM Veronique Elliott RN * Bertie Suicide Severity Rating Scale (Screener/Recent Self-Report) Question Answer Date of Assessment Author 1. Wish to be (Past 1 Month) No 025 2:39 PM Veronique Elliott RN documented as of this encounter Progress Notes * Sally Mcclure MA - 08/01/2025 10:32 AM EST Refaxed orders today. * Sally Mcclure MA - 07/13/2025 4:14 PM EDT [employer] orders Signed, scanned and faxed via Right fax. [phone] documented in this encounter Plan of Treatment Upcoming Encounters Date Type Department Care Team (Late st Contact Info) Description 08/09/2025 3:15 PM EST Ancillary Procedure Pulmonology - [place] 175 [facility] 200 [place] [phone] 08/15/2025 2:40 PM EST Office Visit [facility] - [facility] 102 300 [facility] 102 [place] [phone] Clarisa Martins NP [address] [place] [address] [place] [address] 08/21/2025 4:00 PM EST Office Visit Pulmonology - [place] [address] [phone] Homa Cotto, KYLEE [address] [place] [address] 08/31/2025 3:45 PM EST Office Visit Endocrinology - [address] [phone] Em Mcrae PA [address] [place] [address] documented as of this encounter Visit Diagnoses Not on filedocumented in this encounter Care Teams Banquet Stewardess Relationship Specialty Start Date End Date Madonna Stevens MD [address] [place] [address] PCP - General Internal Medicine 07/01/22 documented as of this encounter
--- OUTSIDE RECORDS SUMMARY | 2025-08-03 15:55 | XMS_ITS | Clinical Summary ---
Author Organization [facility] Address [address] [facility] [address] [place] [address] Phone Care Team Providers Care Safety Administrator Name Role Phone Sallie Pickering MD Primary Care Provider [phone] Allergies Active Allergy Reactions Criticality Noted Date Comments Apple Juice 12/25/2020 [place] Pulp 12/25/2020 Prunus Persica 03/13/2022 Medications albuterol HFA (PROVENTIL HFA;VENTOLIN HFA) 108 (90 Base) MCG/ACT inhaler Active aspirin (ST HANNA) 81 MG EC tablet Take 1 tablet by mouth 1 (one) time each day Active budesonide-form oterol (SYMBICORT) 160-4.5 MCG/ACT inhaler Active carvedilol (COREG) 25 MG tablet Take 1 tablet by mouth 2 (two) times a day Active Dulaglutide (Trulicity) 0.75 MG/0.5ML solution pen-injector Active ferrous sulfate 325 (65 Fe) MG tablet Take 1 tablet by mouth 1 (one) time each day Active gabapentin (NEURONTIN) 300 MG capsule Take 1 capsule by mouth 3 (three) times a day Active insulin glargine (Lantus) 100 UNIT/ML injection Active Insulin Lispro, 1 Unit Dial, 100 UNIT/ML solution pen-injector Active meclizine (ANTIVERT) 25 MG tablet Take 1 tablet by mouth 3 (three) times a day Active sacubitril-vals alison (Entresto) 49-51 MG per tablet Take 1 tablet by mouth 2 (two) times a day Active simvastatin (ZOCOR) 20 MG tablet Take 1 tablet by mouth 1 (one) time each day Active spironolactone (ALDACTONE) 25 MG tablet Take 1 tablet by mouth 1 (one) time each day Active pantoprazole (PROTONIX) 40 MG EC tablet Take 1 tablet by mouth 1 (one) time each day Active colchicine 0.6 MG tablet Take 1 tablet by mouth 2 (two) times a day Active furosemide (LASIX) 40 MG tablet Take 1 tablet by mouth 1 (one) time each day Active metoprolol tartrate (LOPRESSOR) 50 MG tablet Take 1 tablet by mouth 2 (two) times a day 10/27/2020 Active Active Problems Problem Noted Date Diagnosed Date Deep venous thrombosis 06/16/2022 Severe obesity 06/16/2022 Acute osteomyelitis of vertebra 03/13/2022 History of cerebrovascular accident 03/13/2022 Hypertensive emergency 03/13/2022 Hypertensive renal disease 11/20/2020 Stage 3a chronic kidney disease 11/09/2015 Benign hypertension 06/08/2008 Resolved Problems Problem Noted Date Diagnosed Date Resolved Date Stress 01/25/2020 01/22/2021 Hyperlipidemia 09/06/2019 01/22/2021 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 01/22/2021 Noncompliance with treatment 06/09/2017 01/22/2021 Cataract 01/30/2017 01/22/2021 Overview (11/20/2020): Bilateral Obstructive sleep apnea 10/07/201612/28 Normocytic anemia 12/27/2015 01/22/2021 Cardiomyopathy 02/28/2015 01/22/2021 Overview (11/20/2020): 02/12/15 cardiac cath normal coronaries LVG 30% Asthma 12/12/2014 01/22/2021 Dependence on supplemental oxygen 10/05/2014 01/22/2021 Extreme obesity with alveolar hypoventilation 08/08/20 13 01/22/2021 Congestive heart failure 11/21/2011 Overview (11/20/2020): 08/11- inf basal reduced wall motion.ef 45%.diastolic dysfunction seen by dr sherman technically significantly limited M-mode, 2D and color flow Doppler echocardiogram reveals grossly low normal LVEF. Precise LVEF and wall motion abnormalities cannot be evaluated due to poor image quality. Subtle valvular abnormalities cannot be excluded either. 11/09-echo ef 45-50% Occlusion of cerebral artery with stroke 11/21/2011 01/22/2021 Overview (11/20/2020): Mri 11/0936-krhkqmjg-yea in cerebellum adn left vertebral artery occulusion.neuro and neurosurg were consulted. Head and neck cta-vertebral artery occulusion which was reveiwed [place] neuro[place] Who reported no intervention. 11/09-carotid artery looked onk on cta Echo ef 45-50% IMO update Glaucoma suspect 03/02/2010 01/22/2021 Overview (11/20/2020): Per Dr. Farnsworth 07/25/2008 Type 2 diabetes mellitus 07/21/2008 Eczema 06/21/2008 01/22/2021 Overview (11/20/2020): Seen by mack.also has tenia versicolor,lichen planus 03/01/10 - cpx Saw Dr. 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 2 diabetes mellitus 06/08/2008 01/22/2021 Overview (11/20/2020): 10/10-4 metformin a day even xr giving loose stools Dr Tang previous pcp.was discharged due to noncompliance as per pt Hx of numbness and tingling in feet Has seen endocrine for hirsuitism Osteoarthritis 06/08/2008 01/22/2021 Overview (11/20/2020): 08/07- TKR rt-dr riojas 03/08- left tkr On[place]-Dr can[place]ola rheum.has also been seeing [place] [facility].has to get knee replacements Was on oxycodone and tramadol 08/31 xray knees- sevre osteoarthritic changes withing onelia knees cpx 03/01/10 - scheduled for knee replacement 2009 Immunizations Immunization Administration Dates Next Due Influenza, MDCK, PF, Quadrivalent 06/26/2020 Pneumococcal Polysaccharide 10/03/2014 Tdap 09/12/2009 Family History Medical History Relation Comments Cancer Father prostate CA Diabetes Father Hypertension Father Kidney disease Father ESRD Kidney disease Sibling Relation Status Comments Father Sibling Social History Tobacco Use Types Packs/Day Years Used Date Smoking Tobacco: Never Smokeless Tobacco: Never Tobacco Cessation:Counseling Given: Not Answered Alcohol Use Standard Drinks/Week Comments Never 0 (1 standard drink = 0.6 oz pur e alcohol) Comments Unknown Sex and Gender Information Value Date Recorded Sex Assigned at Not on file Legal Sex Female 4:57 PM EST Gender Identity Not on file Sexual Orientation Not on file Last Filed Vital Signs Vital Sign Reading Time Taken Comments Blood Pressure 124/70 06/16/2022 3:15 PM EDT Pulse 132 06/16/2022 3:15 PM EDT Temperature - - Respiratory Rate - - Oxygen Saturation - - Inhaled Oxygen Concentration - - Weight 140 kg (308 lb 6.4 oz) 06/16/2022 3:15 PM EDT Height - - Body Mass Index - - Plan of Treatment Health Maintenance Due Date Last Done Comments Breast Cancer Screening 1960 Colorectal Cancer Screening: Annual FOBT 02/14/2009 Colorectal Cancer Screening: Colonoscopy 02/14/2009 Colorectal Cancer Screening: Sigmoidoscopy 02/14/2009 Pneumococcal Vaccine: 50+ Years (2 of 2 - PCV) 10/03/2015 10/03/2014 Influenza Vaccine (#1) 2025 2, 07/21/2022, 06/26/2020 Pneumococcal Vaccine: Peds ( 0 to 5 Years) and At-Risk Patients (6 to 49 Years) Discontinued 10/03/2014 Hepatitis B Vaccine Aged Out No longe r eligible based on patient's age to complete this topic Insurance Medicaid [place] [facility] Medicare Medicaid [place] U[employer] Medicare Care Teams Safety Administrator Relationship Specialty Start Date End Date Sallie Pickering MD PCP - General 10/08/20
--- OUTSIDE RECORDS SUMMARY | 2025-08-03 15:55 | XMS_ITS | Encounter Summary ---
Author Organization [facility] [place] [address] Care Team Providers Care Senior Restaurant Manager Name Role Phone Madonna Stevens MD Primary Care Provider [phone] Reason for Visit * Reason Onset Date Comments VNA 06/30/2025 Encounter Details Date Type Department Care Team (Late st Contact Info) Description 06/30/2025 Telephone Adult Medicine [address] [phone] Madonna Stevens MD [address] [place] [address] Social History Tobacco Use Types Packs/Day Years [...] 07/26/2025 2:39 PM Veronique Elliott RN * [place] Suicide Severity Rating Scale (Screener/Recent Self-Report) Question Answer Date of Assessment Author 1. Wish to be (Past 1 Month) No 025 2:39 PM Veronique Elliott RN documented as of this encounter Progress Notes * Renita Menezes RN - 06/30/2025 4:57 PM EDT Fyi * Kar De La Rosa - 06/30/2025 3:38 PM EDT VNA CALL Which [facility]NA office is calling? [facility] Full name of caller: Mona The caller is An Occupational Therapist Is the caller at the patients home?: no Reason for call: Patient has been discharged from OT. Pt as consistently cancelled. Last Visit was on 06/06/25 Does caller need an urgent call back? no Was CONTACT Telephone # obtained above?: no Fax #: N/A documented in this encounter Plan of Treatment Upcoming Encounters Date Type Department Care Team (Late st Contact Info) Description 08/09/2025 3:15 PM EST Ancillary Procedure Pulmonology - [place] [address] [phone] 08/15/2025 2:40 PM EST Office Visit [facility] - [facility] [address] [facility] [address] [place] [phone] Clarisa Martins NP [address] [place] [address] [place] [address] 08/21/2025 4:00 PM EST Office Visit Pulmonology - [place] 175 [facility] 200 [place] [address] Homa Cotto, KYLEE [address] [place] [address] 08/31/2025 3:45 PM EST Office Visit Endocrinology - [address] [phone] Em Mcrae PA [address] [place] [address] documented as of this encounter Visit Diagnoses Not on filedocumented in this encounter Care Teams Senior Restaurant Manager Relationship Specialty Start Date End Date Madonna Stevens MD [address] [place] [phone] PCP - General Internal Medicine 07/01/22 documented as of this encounter
--- OUTSIDE RECORDS SUMMARY | 2025-08-03 15:55 | XMS_ITS | Encounter Summary ---
Author Organization [facility] [place] [address] Care Team Providers Care Vest Busheler Name Role Phone Madonna Stevens MD Primary Care Provider [phone] Encounter Details Date Type Department Care Team (Late Contact Info) Description 07/14/2025 Telephone Adult Medicine [address] [phone] Madonna Stevens MD [address] [place] [address] Social History Tobacco Use Types Packs/Day Years [...] on file documented as of this encounter Plan of Treatment Upcoming Encounters Date Type Department Care Team (Late Contact Info) Description 08/09/2025 3:15 PM EST Ancillary Procedure Pulmonology - [place] [address] [facility] [address] [place] [phone] 08/15/2025 2:40 PM EST Office Visit [facility] - [facility] [address] [facility] 102 [place] [phone] Clarisa Martins, KYLEE [address] [place] [address] Dr Maldonado [address] [place] [address] 08/21/2025 4:00 PM EST Office Visit Pulmonology - [place] [address] [place] [phone] Homa Cotto, KYLEE [address] [place] [address] 08/31/2025 3:45 PM EST Office Visit Endocrinology [address] [phone] Em Mcrae PA [address] [place] [address] documented as of this encounter Visit Diagnoses Not on filedocumented in this encounter Care Teams Vest Busheler Relationship Specialty Start Date End Date Madonna Stevens MD [address] [place] [address] PCP - General Internal Medicine 07/01/22 documented as of this encounter
== END 2025-08-03 13:00 | disposition home or self-care (01) ==
LOC: HO.NEURO 12:59
PROVIDERS: PCP Internal Medicine; Visit Provider Internal Medicine Rheumatology
DX: R20.0 Anesthesia of skin (principal); M79.641 Pain in right hand; M79.642 Pain in left hand
CPT/HCPCS: 95886; 95913